=== PATIENT | male | born 1950 | race Caucasian/White ===

== ENCOUNTER 2022-04-11 09:36 | Inpatient (IN) | payer MEDICARE, OTHER ==
[~2022-04-11] VITALS: Ht 170.2 cm; Wt 81.6 kg
[~2022-04-11 09:36] MED LIST: ACYCLOVIR400 MG PO; COLACE 100MG C100 MG PO; DAILY VITE1 EACH PO; ECOTRIN81 MG PO; ERYTHROMYCIN O3.5 GM OU; HYTRIN CAP 5 MG5 MG PO; INVANZ 1 GM VIAL1 GM IV; NORCO 5-325 TA1 EACH PO; OMEPRAZOLE20 M1 PO; PERCOCET 5-3251 EACH PO; PREDNISOLONE AC10 ML OP; VITAMIN B-121000 MCG PO; ZYLOPRIM 100 M100 MG PO; ZYPREXA10 MG PO
[2022-04-11 10:25] LABS: HEMOGLOBIN 12.2 gm/dl (14.0-17.5); RED BLOOD COUNT 3.76 M/UL (4.20-5.50); WHITE BLOOD COUNT 10.4 K/UL (4.5-11.0)
--- NOTE | 2022-04-11 14:33 | NUR ---
LAB CALLED WITH [facility] OF 21.0. [facility]ACT[facility] TRENDING DOWN. AWARE.
[2022-04-11] MEDS ORDERED: COLCHICINE0.6 M1 PO (14:50)
[2022-04-11] MEDS ORDERED: VITAMIN D31250 MCG PO (14:51)
[2022-04-11] MEDS ORDERED: CRESTOR10 MG PO (14:54)
[2022-04-11] MEDS ORDERED: SODIUM BICARBO650 MG PO (14:56)
[2022-04-12 03:00] LABS: HEMOGLOBIN 10.7 gm/dl (14.0-17.5); RED BLOOD COUNT 3.28 M/UL (4.20-5.50); WHITE BLOOD COUNT 8.9 K/UL (4.5-11.0)
[2022-04-13 03:08] LABS: HEMOGLOBIN 11.1 gm/dl (14.0-17.5); RED BLOOD COUNT 3.43 M/UL (4.20-5.50); WHITE BLOOD COUNT 9.3 K/UL (4.5-11.0)
[2022-04-14 03:36] LABS: HEMOGLOBIN 11.2 gm/dl (14.0-17.5); RED BLOOD COUNT 3.42 M/UL (4.20-5.50); WHITE BLOOD COUNT 8.9 K/UL (4.5-11.0)
[2022-04-14] MEDS ORDERED: ZYLOPRIM 100 M100 MG PO (08:42)
== END 2022-04-14 10:25 | disposition home or self-care (01) | DRG 682 ==
LOC: ER1 09:36 → CDU 12:19 → M/S 14:28
PROVIDERS: Internal Medicine Nephrology; Physician Assistant; ADMIT Internal Medicine
PROC: B24BZZZ Ultrasonography of Heart with Aorta (ICD-10-PCS; principal; 2022-04-11)
DX: N17.9 Acute kidney failure, unspecified (principal); J96.01 Acute respiratory failure with hypoxia; Z20.822 Contact with and (suspected) exposure to COVID-19; E87.2 Acidosis; N18.4 Chronic kidney disease, stage 4 (severe); E86.0 Dehydration; I95.9 Hypotension, unspecified; E86.1 Hypovolemia; D50.9 Iron deficiency anemia, unspecified; F43.10 Post-traumatic stress disorder, unspecified; M10.9 Gout, unspecified; E78.5 Hyperlipidemia, unspecified; N40.0 Benign prostatic hyperplasia without lower urinary tract symptoms; M06.9 Rheumatoid arthritis, unspecified; E87.8 Other disorders of electrolyte and fluid balance, not elsewhere classified; K21.9 Gastro-esophageal reflux disease without esophagitis; Z79.01 Long term (current) use of anticoagulants; Z79.82 Long term (current) use of aspirin; Z90.49 Acquired absence of other specified parts of digestive tract; Z98.42 Cataract extraction status, left eye; Z98.41 Cataract extraction status, right eye; Z88.0 Allergy status to penicillin
CPT/HCPCS: ECHO; 0240U; 36415; 36600; 70450; 71045; 80048; 80053; 80307; 81001; 82550; 82553; 82570; 82803; 82962; 83605; 83735; 83880; 84156; 84484; 85025; 85379; 87040; 93005; 93270; 93306; 97162; 99285; J1650

== ENCOUNTER → 2022-06-06 | Outpatient (CLI) | payer MEDICARE, OTHER ==
[~2022-06-06] MED LIST changes: +COLCHICINE0.6 M1 PO; +CRESTOR10 MG PO; +SODIUM BICARBO650 MG PO; +VITAMIN D31250 MCG PO
[2022-06-07 12:12] LABS: CREATININE, URINE 85.8 mg/dL (Not Estab.)
== END ==
LOC: LAB 11:53
PROVIDERS: Internal Medicine Nephrology
DX: N18.32 Chronic kidney disease, stage 3b (principal)
CPT/HCPCS: 36415; 80048; 81001; 82043; 82570